=== PATIENT | male | born 1980 | race Caucasian/White ===

== ENCOUNTER 2019-10-25 10:53 | Day surgery (SDC) | payer OTHER ==
[2019-10-25 11:42] VITALS: BMI 28.8
[2019-10-25 12:54] VITALS: TEMP 98.6
[2019-10-25 13:32] VITALS: BP 121/82; PULSE 79
--- NOTE | 2019-10-28 17:38 | PATH ---
Surgical Pathology Report Patient Name: LUTHER LEE [facility]. Rec. #: [id number] /Age/Gender: 1980 (Age: 38) / M Account: [id number] Location: U-ENDOSCOPY Taken: 10/25/2019 Received: 10/25/2019 Reported: 10/28/2019 Physicians: Quirino Anand M.D. Specimen(s) Received A: SIGMOID COLON POLYP B: CRISTINA ASCENDING COLON C: RANDOM TRANSVERSE COLON D: RANDOM DESCENDING COLON E: RANDOM SIGMOID COLON Clinical History Diarrhea Postoperative diagnosis: Sigmoid colon polyp, hemorrhoids Final Diagnosis A. SIGMOID COLON, POLYP, BIOPSY: POLYPOID COLONIC MUCOSA WITH PROMINENT LYMPHOID AGGREGATE AND SUPERFICIAL HYPERPLASTIC FEATURES. B. RANDOM ASCENDING COLON, BIOPSY: COLONIC MUCOSA WITH SMALL LYMPHOID AGGREGATE. C. RANDOM TRANSVERSE COLON, BIOPSY: COLONIC MUCOSA WITHOUT SIGNIFICANT PATHOLOGIC FINDINGS. D. RANDOM DESCENDING COLON, BIOPSY: COLONIC MUCOSA WITH MINUTE LYMPHOID AGGREGATE. E. RANDOM SIGMOID COLON, BIOPSY: COLONIC MUCOSA WITH SMALL LYMPHOID AGGREGATES. Electronically Signed Dari Mullins M.D. Gross Description A. Received in formalin, labeled "sigmoid colon polyp biopsy" is a palmer, irregular portion of soft tissue measuring 0.3 cm. in greatest dimension. The specimen is submitted in toto in one cassette. B. Received in formalin, labeled "ascending colon biopsy" is a palmer, irregular portion of soft tissue measuring 0.3 cm. in greatest dimension. The specimen is submitted in toto in one cassette. C. Received in formalin, labeled "transverse colon biopsy" are 2 palmer, irregular portions of soft tissue measuring 0.3 and 0.5 cm. in greatest dimension. The specimens are submitted in toto in one cassette. D. Received in formalin, labeled "descending biopsy random" are 2 palmer, irregular portions of soft tissue averaging 0.4 cm. in greatest dimension. The specimens are submitted in toto in one cassette. E. Received in formalin, labeled "random sigmoid colon biopsy" are 2 palmer, irregular portions of soft tissue measuring 0.3 and 0.7 cm. in greatest dimension. The specimens are submitted in toto in one cassette. DL/10/25/2019 saudi/10/25/2019
== END 2019-10-25 13:25 | disposition home or self-care (01) ==
LOC: JASU-ENDO 10:53
PROVIDERS: ATTEND Internal Medicine Gastroenterology
PROC: 0DBL8ZX Excision of Transverse Colon, Via Natural or Artificial Opening Endoscopic, Diagnostic (ICD-10-PCS; 2019-10-25)
PROC: 0DBN8ZX Excision of Sigmoid Colon, Via Natural or Artificial Opening Endoscopic, Diagnostic (ICD-10-PCS; 2019-10-25)
PROC: 0DBM8ZX Excision of Descending Colon, Via Natural or Artificial Opening Endoscopic, Diagnostic (ICD-10-PCS; 2019-10-25)
PROC: 0DBH8ZX Excision of Cecum, Via Natural or Artificial Opening Endoscopic, Diagnostic (ICD-10-PCS; 2019-10-25)
PROC: 0DBK8ZX Excision of Ascending Colon, Via Natural or Artificial Opening Endoscopic, Diagnostic (ICD-10-PCS; principal; 2019-10-25 13:00)
DX: D12.5 Benign neoplasm of sigmoid colon (principal); K52.9 Noninfective gastroenteritis and colitis, unspecified; K63.89 Other specified diseases of intestine; K64.8 Other hemorrhoids
CPT/HCPCS: 88305-TC